=== PATIENT | male | born 1980 | race Caucasian/White ===

== ENCOUNTER → 2017-09-17 | Outpatient (CLI) | payer BC ==
--- NOTE | 2017-09-17 16:28 | Diagnostic Imaging Report ---
INDICATION: Cough. PA and lateral views of the chest are obtained. FINDINGS: Heart size and pulmonary vascularity are within normal limits. There is mild density in the right middle lobe resulting in partial obscuration of the right heart border. No consolidation, pneumothorax or pleural fluid is identified. IMPRESSION: Right middle lobe atelectasis and/or pneumonitis without other acute abnormality detected. Dictated by: Dictated on workstation # [id number]
== END ==
LOC: RAD 16:00
PROVIDERS: ATTEND Nurse Practitioner Family
DX: R05 Cough (principal)
CPT/HCPCS: 71046

== ENCOUNTER 2017-11-06 13:29 | Outpatient (RCR) | payer BC, MEDICAID ==
[2017-10-07 14:23] LABS: BASOPHILS % (AUTO) 0 % (0-10); EOSINOPHILS # (AUTO) 0.1 10^3/uL (0.0-0.3); EOSINOPHILS % (AUTO) 1 % (0-10); HEMATOCRIT 40 % (40-54); HEMOGLOBIN 13.8 G/DL (13.3-17.7); LYMPHOCYTES # (AUTO) 2.4 X 10^3 (1.0-4.0); LYMPHOCYTES % (AUTO) 40 % (12-44); MEAN CORPUSCULAR HEMOGLOBIN 31 PG (25-34); MEAN CORPUSCULAR HGB CONC 34 G/DL (32-36); MEAN CORPUSCULAR VOLUME 89 FL (80-99); MEAN PLATELET VOLUME 10.1 FL (7.4-10.4); MONOCYTES # (AUTO) 0.5 X 10^3 (0.0-1.0); MONOCYTES % (AUTO) 9 % (0-12); NEUTROPHILS # (AUTO) 3.1 X 10^3 (1.8-7.8); NEUTROPHILS % (AUTO) 50 % (42-75); PLATELET COUNT 287 10^3/uL (130-400); RED BLOOD COUNT 4.51 10^6/uL (4.35-5.85); RED CELL DISTRIBUTION WIDTH 13.7 % (10.0-14.5); WHITE BLOOD COUNT 6.2 10^3/uL (4.3-11.0)
[2017-10-07 14:44] LABS: ALANINE AMINOTRANSFERASE 31 U/L (0-55); ALBUMIN 4.2 GM/DL (3.2-4.5); ALKALINE PHOSPHATASE 59 U/L (40-136); BILIRUBIN,TOTAL 0.2 MG/DL (0.1-1.0); BUN/CREATININE RATIO 19; CARBON DIOXIDE 31 MMOL/L (21-32); CHLORIDE 104 MMOL/L (98-107); CREATININE SERUM 0.85 MG/DL (0.60-1.30); GFR ESTIMATED > 60; GLUCOSE 96 MG/DL (70-105); POTASSIUM 4.2 MMOL/L (3.6-5.0); SODIUM 140 MMOL/L (135-145); TOTAL PROTEIN 6.5 GM/DL (6.4-8.2)
[2017-10-14 09:54] LABS: BASOPHILS % (AUTO) 0 % (0-10); EOSINOPHILS # (AUTO) 0.2 10^3/uL (0.0-0.3); EOSINOPHILS % (AUTO) 3 % (0-10); HEMATOCRIT 43 % (40-54); HEMOGLOBIN 14.3 G/DL (13.3-17.7); LYMPHOCYTES # (AUTO) 1.9 X 10^3 (1.0-4.0); LYMPHOCYTES % (AUTO) 27 % (12-44); MEAN CORPUSCULAR HEMOGLOBIN 30 PG (25-34); MEAN CORPUSCULAR HGB CONC 34 G/DL (32-36); MEAN CORPUSCULAR VOLUME 89 FL (80-99); MEAN PLATELET VOLUME 10.4 FL (7.4-10.4); MONOCYTES # (AUTO) 0.6 X 10^3 (0.0-1.0); MONOCYTES % (AUTO) 9 % (0-12); NEUTROPHILS # (AUTO) 4.1 X 10^3 (1.8-7.8); NEUTROPHILS % (AUTO) 61 % (42-75); PLATELET COUNT 197 10^3/uL (130-400); RED BLOOD COUNT 4.78 10^6/uL (4.35-5.85); RED CELL DISTRIBUTION WIDTH 13.9 % (10.0-14.5); WHITE BLOOD COUNT 6.8 10^3/uL (4.3-11.0)
[2017-10-14 10:17] LABS: ALANINE AMINOTRANSFERASE 32 U/L (0-55); ALBUMIN 4.1 GM/DL (3.2-4.5); ALKALINE PHOSPHATASE 51 U/L (40-136); BILIRUBIN,TOTAL 0.3 MG/DL (0.1-1.0); BUN/CREATININE RATIO 15; CARBON DIOXIDE 27 MMOL/L (21-32); CHLORIDE 107 MMOL/L (98-107); CREATININE SERUM 0.84 MG/DL (0.60-1.30); GFR ESTIMATED > 60; GLUCOSE 93 MG/DL (70-105); POTASSIUM 3.9 MMOL/L (3.6-5.0); SODIUM 141 MMOL/L (135-145); TOTAL PROTEIN 6.2 GM/DL (6.4-8.2)
[2017-10-21 10:15] LABS: BASOPHILS % (AUTO) 0 % (0-10); EOSINOPHILS # (AUTO) 0.2 10^3/uL (0.0-0.3); EOSINOPHILS % (AUTO) 2 % (0-10); HEMATOCRIT 40 % (40-54); HEMOGLOBIN 13.8 G/DL (13.3-17.7); LYMPHOCYTES # (AUTO) 1.1 X 10^3 (1.0-4.0); LYMPHOCYTES % (AUTO) 15 % (12-44); MEAN CORPUSCULAR HEMOGLOBIN 31 PG (25-34); MEAN CORPUSCULAR HGB CONC 34 G/DL (32-36); MEAN CORPUSCULAR VOLUME 89 FL (80-99); MEAN PLATELET VOLUME 10.4 FL (7.4-10.4); MONOCYTES # (AUTO) 0.7 X 10^3 (0.0-1.0); MONOCYTES % (AUTO) 10 % (0-12); NEUTROPHILS # (AUTO) 5.4 X 10^3 (1.8-7.8); NEUTROPHILS % (AUTO) 73 % (42-75); PLATELET COUNT 192 10^3/uL (130-400); RED BLOOD COUNT 4.53 10^6/uL (4.35-5.85); RED CELL DISTRIBUTION WIDTH 13.6 % (10.0-14.5); WHITE BLOOD COUNT 7.4 10^3/uL (4.3-11.0)
[2017-10-21 10:38] LABS: ALANINE AMINOTRANSFERASE 24 U/L (0-55); ALBUMIN 4.1 GM/DL (3.2-4.5); ALKALINE PHOSPHATASE 54 U/L (40-136); BILIRUBIN,TOTAL 0.2 MG/DL (0.1-1.0); BUN/CREATININE RATIO 15; CALCIUM 9.1 MG/DL (8.5-10.1); CARBON DIOXIDE 29 MMOL/L (21-32); CHLORIDE 106 MMOL/L (98-107); CREATININE SERUM 0.79 MG/DL (0.60-1.30); GFR ESTIMATED > 60; GLUCOSE 92 MG/DL (70-105); POTASSIUM 3.6 MMOL/L (3.6-5.0); SODIUM 142 MMOL/L (135-145); TOTAL PROTEIN 6.2 GM/DL (6.4-8.2)
[2017-10-28 09:41] LABS: BASOPHILS % (AUTO) 0 % (0-10); EOSINOPHILS # (AUTO) 0.2 10^3/uL (0.0-0.3); EOSINOPHILS % (AUTO) 3 % (0-10); HEMATOCRIT 40 % (40-54); HEMOGLOBIN 13.7 G/DL (13.3-17.7); LYMPHOCYTES # (AUTO) 1.2 X 10^3 (1.0-4.0); LYMPHOCYTES % (AUTO) 21 % (12-44); MEAN CORPUSCULAR HEMOGLOBIN 30 PG (25-34); MEAN CORPUSCULAR HGB CONC 34 G/DL (32-36); MEAN CORPUSCULAR VOLUME 87 FL (80-99); MEAN PLATELET VOLUME 9.9 FL (7.4-10.4); MONOCYTES # (AUTO) 0.7 X 10^3 (0.0-1.0); MONOCYTES % (AUTO) 12 % (0-12); NEUTROPHILS # (AUTO) 3.9 X 10^3 (1.8-7.8); NEUTROPHILS % (AUTO) 64 % (42-75); PLATELET COUNT 155 10^3/uL (130-400); RED BLOOD COUNT 4.63 10^6/uL (4.35-5.85); RED CELL DISTRIBUTION WIDTH 13.7 % (10.0-14.5)
[2017-10-28 10:13] LABS: ALANINE AMINOTRANSFERASE 27 U/L (0-55); ALBUMIN 4.1 GM/DL (3.2-4.5); ALKALINE PHOSPHATASE 46 U/L (40-136); BILIRUBIN,TOTAL 0.3 MG/DL (0.1-1.0); BUN/CREATININE RATIO 14; CALCIUM 9.2 MG/DL (8.5-10.1); CARBON DIOXIDE 27 MMOL/L (21-32); CHLORIDE 106 MMOL/L (98-107); CREATININE SERUM 0.84 MG/DL (0.60-1.30); GFR ESTIMATED > 60; GLUCOSE 92 MG/DL (70-105); SODIUM 140 MMOL/L (135-145); TOTAL PROTEIN 6.4 GM/DL (6.4-8.2)
[2017-11-06 14:00] LABS: BASOPHILS % (AUTO) 0 % (0-10); EOSINOPHILS # (AUTO) 0.2 10^3/uL (0.0-0.3); EOSINOPHILS % (AUTO) 3 % (0-10); HEMATOCRIT 41 % (40-54); HEMOGLOBIN 14.5 G/DL (13.3-17.7); LYMPHOCYTES % (AUTO) 18 % (12-44); MEAN CORPUSCULAR HEMOGLOBIN 30 PG (25-34); MEAN CORPUSCULAR HGB CONC 36 G/DL (32-36); MEAN CORPUSCULAR VOLUME 84 FL (80-99); MEAN PLATELET VOLUME 10.4 FL (7.4-10.4); MONOCYTES # (AUTO) 0.6 X 10^3 (0.0-1.0); MONOCYTES % (AUTO) 11 % (0-12); NEUTROPHILS # (AUTO) 3.9 X 10^3 (1.8-7.8); NEUTROPHILS % (AUTO) 67 % (42-75); RED BLOOD COUNT 4.81 10^6/uL (4.35-5.85); RED CELL DISTRIBUTION WIDTH 13.4 % (10.0-14.5); WHITE BLOOD COUNT 5.7 10^3/uL (4.3-11.0)
[2017-11-06 14:06] LABS: PLATELET COUNT 63 10^3/uL (130-400)
[2017-11-06 14:17] LABS: ALANINE AMINOTRANSFERASE 11 U/L (0-55); ALBUMIN 4.1 GM/DL (3.2-4.5); ALKALINE PHOSPHATASE 46 U/L (40-136); BILIRUBIN,TOTAL 0.4 MG/DL (0.1-1.0); BUN/CREATININE RATIO 16; CARBON DIOXIDE 28 MMOL/L (21-32); CHLORIDE 108 MMOL/L (98-107); CREATININE SERUM 1.01 MG/DL (0.60-1.30); GFR ESTIMATED > 60; GLUCOSE 98 MG/DL (70-105); POTASSIUM 3.9 MMOL/L (3.6-5.0); SODIUM 143 MMOL/L (135-145); TOTAL PROTEIN 6.4 GM/DL (6.4-8.2)
== END 2018-01-05 | disposition home or self-care (01) ==
LOC: LAB 13:29
PROVIDERS: ATTEND Internal Medicine Medical Oncology
DX: C71.9 Malignant neoplasm of brain, unspecified (principal)
CPT/HCPCS: 36415; 80053; 85025

== ENCOUNTER 2017-11-19 08:48 | Outpatient (RCR) | payer BC, MEDICAID ==
[2017-11-22] MEDS ORDERED: morphine INJ 10 MG/ML 1ML (SYR OR VIAL) ONE (13:38)
== END 2017-12-16 | disposition home or self-care (01) ==
LOC: ONC 08:48
PROVIDERS: ATTEND Radiology Radiation Oncology
DX: Z51.0 Encounter for antineoplastic radiation therapy (principal); C71.1 Malignant neoplasm of frontal lobe
CPT/HCPCS: 77300; 77301; 77332; 77334; 77336; 77338; 77386; 99204

== ENCOUNTER 2018-03-04 08:55 | Outpatient (RCR) | payer BC, MEDICAID | END 2018-03-31 | disposition home or self-care (01) | LOC: ONC 08:55 | PROVIDERS: ATTEND Radiology Radiation Oncology | DX: Z51.0 Encounter for antineoplastic radiation therapy (principal); C71.1 Malignant neoplasm of frontal lobe | CPT/HCPCS: 77290; 77295; 77300; 77334; 77336; 77417; 99213 ==

== ENCOUNTER → 2018-03-31 | Outpatient (CLI) | payer BC ==
[~2018-03-31] MED LIST: GADOBUTROL 7.5 MMOL/7.5 ML (GADAVIST) VIAL IV ONE
--- NOTE | 2018-03-31 17:42 | Diagnostic Imaging Report ---
PROCEDURE: MR imaging of the brain with and without contrast. TECHNIQUE: Multiplanar, multisequence MR imaging of the brain was performed with and without contrast. INDICATION: History of prior brain tumor resection. COMPARISON: Comparison is made with a previous study from March 07, 2016 and a previous outside examination from November 27, 2017. FINDINGS: Operative changes of a previous right frontal craniotomy are noted with a large CSF signal intensity resection cavity within the right frontal lobe. This appears unchanged. The T2 signal abnormality surrounding the resection cavity appears stable. This is predominantly around its lateral and inferior margins. Previously described small nodule of enhancement along the medial aspect of the resection cavity demonstrates no appreciable interval change. There also is some precontrast T1 hyperintensity along the medial aspect of the resection cavity, which is unchanged as well. The two regions of described ependymal enhancement along the occipital horn of the left lateral ventricle appear to be slightly more prominent than on the prior examination. The more anteriorly appears slightly more thick measuring approximately 3 mm and previously approximately 1 mm. The more posterior lesion has a maximum length of approximately 13 mm and was previously approximately 11 mm. No entirely new regions of abnormal enhancement are present. The diffusion series demonstrates no restriction or evidence of acute ischemia. There is no acute intracranial hemorrhage. There is no intracranial mass effect. There is no hydrocephalus. The basilar cisterns are patent. The posterior fossa demonstrates no acute process. There is fluid within the left mastoids. There is a trace degree of fluid in the right mastoids. The pituitary gland and the pineal region appear unremarkable. The paranasal sinuses are clear. The orbital contents are unremarkable. Major expected arterial and dural venous sinus flow voids appear preserved. IMPRESSION: 1. Operative changes of right frontal craniotomy with previous right frontal lobe mass resection. T2 signal changes about the resection cavity appear stable in all three dimensions. Slight enhancement of a small nodule along the medial margin of this resection cavity has not appreciably changed. There is also some adjacent precontrast T1 hyperintensity which is on a presumed postsurgical basis. 2. Very slight interval increase in the ependymal enhancement along the left occipital horn. The adjacent T2 signal abnormality within the white matter is unchanged. No new regions of enhancement are evident. 3. There is no acute ischemia, hemorrhage, mass effect, or hydrocephalus. Dictated by: Dictated on workstation # [id number]
== END ==
LOC: RAD 14:25
PROVIDERS: ATTEND Internal Medicine Medical Oncology
DX: C71.9 Malignant neoplasm of brain, unspecified (principal); Z98.890 Other specified postprocedural states
CPT/HCPCS: 70553

== ENCOUNTER → 2018-08-27 | Outpatient (CLI) | payer BC ==
--- NOTE | 2018-08-27 11:12 | Diagnostic Imaging Report ---
PROCEDURE: MR imaging cervical spine with and without contrast. TECHNIQUE: Multiplanar and multisequence MRI of the cervical spine was performed with and without contrast. INDICATION: Neck and back pain as well as leg numbness. COMPARISON: No prior MRI cervical spine studies are available for comparison. FINDINGS: The curvature and alignment of the cervical spine is normal. The vertebral body marrow signal is normal. No geographic marrow lesion is seen. There is fairly normal height and signal intensity to the cervical intervertebral discs. The cervical cord shows normal homogeneous signal intensity and normal morphology. No focal disc protrusion is seen. No definite central canal or neural foraminal narrowing is seen. No abnormal enhancement is identified following contrast administration. IMPRESSION: Unremarkable pre-and postcontrast MRI of the cervical spine. Dictated by: Dictated on workstation # [id number]
== END ==
LOC: RAD 09:09
PROVIDERS: ATTEND Internal Medicine Medical Oncology
DX: C71.9 Malignant neoplasm of brain, unspecified (principal); M54.2 Cervicalgia
CPT/HCPCS: 72156

== ENCOUNTER → 2018-09-08 | Outpatient (CLI) | payer BC ==
--- NOTE | 2018-09-08 12:13 | Diagnostic Imaging Report ---
EXAM: MRI THORACIC SPINE W/WO CON INDICATION: Back pain. History of glioblastoma. COMPARISON: None. FINDINGS: Normal alignment. Vertebral body heights are preserved. Mild scattered degenerative endplate changes. No spinal canal or neural foraminal narrowing. No abnormal signal or enhancement in the thoracic spinal cord. The visualized paravertebral soft tissues are unremarkable. IMPRESSION: Mild spondylotic changes in the thoracic spine. Remainder negative. No evidence of metastatic disease. Dictated by: Dictated on workstation # [id number]
== END ==
LOC: RAD 08:34
PROVIDERS: ATTEND Internal Medicine Medical Oncology
DX: C71.9 Malignant neoplasm of brain, unspecified (principal); M47.814 Spondylosis without myelopathy or radiculopathy, thoracic region
CPT/HCPCS: 72157

== ENCOUNTER → 2018-11-19 | Outpatient (CLI) | payer BC ==
[~2018-11-19] MED LIST changes: +CELE-63; -GADOBUTROL 7.5 MMOL/7.5 ML (GADAVIST) VIAL IV ONE; +TEMO20CA14
[2018-11-19 14:09] LABS: HEMATOCRIT 45 % (40-54); HEMOGLOBIN 15.6 G/DL (13.3-17.7); MEAN CORPUSCULAR HEMOGLOBIN 30 PG (25-34); MEAN CORPUSCULAR VOLUME 88 FL (80-99); WHITE BLOOD COUNT 8.7 10^3/uL (4.3-11.0)
[2018-11-19 14:10] LABS: BASOPHILS % (AUTO) 0 % (0-10); EOSINOPHILS % (AUTO) 0 % (0-10); LYMPHOCYTES # (AUTO) 1.4 X 10^3 (1.0-4.0); LYMPHOCYTES % (AUTO) 16 % (12-44); MEAN CORPUSCULAR HGB CONC 34 G/DL (32-36); MEAN PLATELET VOLUME 9.7 FL (7.4-10.4); MONOCYTES # (AUTO) 0.8 X 10^3 (0.0-1.0); MONOCYTES % (AUTO) 9 % (0-12); NEUTROPHILS # (AUTO) 6.4 X 10^3 (1.8-7.8); NEUTROPHILS % (AUTO) 74 % (42-75); PLATELET COUNT 223 10^3/uL (130-400); RED CELL DISTRIBUTION WIDTH 12.9 % (10.0-14.5)
== END ==
LOC: LAB FS 13:45
PROVIDERS: ATTEND Internal Medicine Medical Oncology
DX: C71.9 Malignant neoplasm of brain, unspecified (principal)
CPT/HCPCS: 36415; 85025

== ENCOUNTER 2018-11-22 10:30 | Emergency (ER) | payer BC ==
[~2018-11-22] VITALS: Ht 175.3 cm; Wt 72.6 kg
--- NOTE | 2018-11-22 10:53 | ED Headache ---
General Chief Complaint: Head/Cervical Problems Stated Complaint: HEADACHE Source: patient Exam Limitations: no limitations History of Present Illness Date Seen by Provider: November 22, 2018 Time Seen by Provider: 10:52 Initial Comments To ER by mother with reports of a severe frontal headache for the past 2-3 days. A history of stage IV glioblastoma currently on oral chemotherapy ( Celecoxib 200mg po bid and temozolomide 20mg po daily). He had surgical resection of the initial lesion with subsequent recurrence found on recent MRI. Mother also states that over the course of the past week his memory has been "terrible". No seizure-like activity or other neurologic symptoms. Timing/Duration: 1 week, increasing Severity/Quality: moderate Location: frontal Associated Symptoms: denies symptoms; No confusion, No fatigue, No facial pain , No fever/chills, No flushing; nausea/vomiting (nausea but no vomiting); No seizures, No vision changes Allergies and Home Medications Allergies Coded Allergies: No Known Drug Allergies (Unverified , 03/07/18) Patient Home Medication List Home Medication List Reviewed: Yes Review of Systems Review of Systems Constitutional: see HPI Eyes: No Symptoms Reported Ears, Nose, Mouth, Throat: no symptoms reported Respiratory: no symptoms reported Cardiovascular: no symptoms reported Genitourinary: no symptoms reported Musculoskeletal: no symptoms reported Skin: no symptoms reported Psychiatric/Neurological: See HPI, Headache Past Czlxzjo-Bxernh-Juelpt Hx Patient Social History Recent Foreign Travel: No Contact w/Someone Who Travel: No Physical Exam Vital Signs Vital Signs - First Documented 11/22/18 10:45 Temp 97.6 Pulse 71 Resp 16 B/P (MAP) 146/95 (112) Pulse Ox 99 O2 Delivery Room Air Capillary Refill : Height, Weight, BMI Height: '" Weight: lbs. oz. kg; BMI Method: General Appearance: WD/WN, no apparent distress HEENT: PERRL/EOMI, normal ENT inspection Neck: non-tender, full range of motion Respiratory: normal breath sounds, no respiratory distress, no accessory muscle use Extremities: normal range of motion, non-tender Psychiatric: alert, oriented x 3, other (flat affect) Crainal Nerves: normal hearing, normal speech, PERRL Coordination/Gait: normal gait Motor/Sensory: no motor deficit, no sensory deficit Skin: normal color, warm/dry Progress/Results/Core Measures Results/Orders My Orders Orders - GENOVEVA FINK APRN Ct Head Wo (11/22/18 10:50) Fentanyl Injection (Sublimaze Injection (11/22/18 11:00) Prochlorperazine Injection (Compazine In (11/22/18 11:00) Medications Given in ED Current Medications Medications Dose Ordered Sig/Bebe Route Start Time Stop Time Status Last Admin Dose Admin Fentanyl Citrate 75 mcg ONCE ONCE IVP 11/22/18 11:00 11/22/18 11:01 DC 11/22/18 10:59 75 MCG Prochlorperazine Edisylate 5 mg ONCE ONCE IM 11/22/18 11:00 11/22/18 11:01 DC 11/22/18 10:59 5 MG Vital Signs/I&O 11/22/18 10:45 Temp 97.6 Pulse 71 Resp 16 B/P (MAP) 146/95 (112) Pulse Ox 99 O2 Delivery Room Air Diagnostic Imaging Diagonstic Imaging: CT Comments NAME: YOGESH ESPINOZA MED REC#: [id number] PT STATUS: REG ER : 1980 PHYSICIAN: GENOVEVA FINK APRN ADMIT DATE: 11/22/18/ER Draft Date of Exam:11/22/18 CT HEAD WO PROCEDURE: CT head without contrast. TECHNIQUE: Multiple contiguous axial images were obtained through the brain without the use of intravenous contrast. Auto Exposure Controls were utilized during the CT exam to meet ALARA standards for radiation dose reduction. INDICATION: Headache. History of brain cancer, currently on chemotherapy. COMPARISON: MRI brain from 03/31/2018. FINDINGS: Stable postoperative changes from right frontal tumor resection. The cystic cavity is located at the operative bed and similar to prior MRI. There are new areas of ill-defined white matter hypoattenuation in the left inferior frontal lobe as well as the left parieto-occipital region. No progressive hydrocephalus. No hyperdense hemorrhage. No acute skull fracture. Right frontal craniotomy is again seen. Mastoid air cells are clear. IMPRESSION: 1. New area of white matter hypoattenuation in the left frontal lobe may represent vasogenic edema associated with metastasis or post treatment change. Consider non-emergent MRI brain without and with IV contrast for further assessment. 2. Hypoattenuation of the left parieto-occipital region is also enlarged compared to prior MRI and could also represent vasogenic edema or post treatment change. 3. No hydrocephalus or midline shift. Dictated on workstation # [id number] Dict: 11/22/18 1127 Trans: 11/22/18 1143 [facility] [address] Interpreted by: JULIA LOMAX MD Electronically signed by: Departure Communication (Admissions) Spoke with [facility], Dr. Hayes has accepted the patient in transfer. Ill let him go by private vehicle per his wishes after discussing with him the risks of seizure or worsening neurologic status en route Impression Primary Impression: Headache Additional Impression: Glioblastoma Disposition: 02 XFER SHT-TRM HOSP Condition: Stable Departure-Patient Inst. Referrals: [facility] (PCP/Family) Primary Care Physician GENOVEVA FINK APRN November 22, 2018 10:53
[2018-11-22] MEDS ORDERED: PROCHLORPERAZINE 10 MG/2ML INJ (COMPAZINE) IM ONE (11:00)
[2018-11-22] MEDS ORDERED: fentaNYL INJECTION 100 MCG/2 ML AMP IVP ONE (11:00)
[2018-11-22] MEDS ORDERED: TEMO20CA14 (11:13)
[2018-11-22] MEDS ORDERED: CELE-63 (11:13)
--- NOTE | 2018-11-22 11:43 | Diagnostic Imaging Report ---
PROCEDURE: CT head without contrast. TECHNIQUE: Multiple contiguous axial images were obtained through the brain without the use of intravenous contrast. Auto Exposure Controls were utilized during the CT exam to meet ALARA standards for radiation dose reduction. INDICATION: Headache. History of brain cancer, currently on chemotherapy. COMPARISON: MRI brain from 03/31/2018. FINDINGS: Stable postoperative changes from right frontal tumor resection. The cystic cavity is located at the operative bed and similar to prior MRI. There are new areas of ill-defined white matter hypoattenuation in the left inferior frontal lobe as well as the left parieto-occipital region. No progressive hydrocephalus. No hyperdense hemorrhage. No acute skull fracture. Right frontal craniotomy is again seen. Mastoid air cells are clear. IMPRESSION: 1. New area of white matter hypoattenuation in the left frontal lobe may represent vasogenic edema associated with metastasis or post treatment change. Consider non-emergent MRI brain without and with IV contrast for further assessment. 2. Hypoattenuation of the left parieto-occipital region is also enlarged compared to prior MRI and could also represent vasogenic edema or post treatment change. 3. No hydrocephalus or midline shift. Dictated by: Dictated on workstation # [id number]
--- NOTE | 2018-11-22 11:57 | NUR ---
GENOVEVA IN WITH PT
[2018-11-22 12:23] VITALS: BP 146/98
== END 2018-11-22 12:23 | disposition short-term general hospital (02) ==
LOC: EDUNIT# 10:30 → ER 10:31
DX: R51 Headache (principal); C71.9 Malignant neoplasm of brain, unspecified
CPT/HCPCS: 70450; 96372; 96374

== ENCOUNTER 2018-12-01 18:02 | Emergency (ER) | payer BC ==
[~2018-12-01] VITALS: Ht 175.3 cm; Wt 63.5 kg
--- OUTSIDE RECORDS SUMMARY | 2018-12-01 18:09 | XMS REPORT ---
Author Author DAO YANEZ [facility] Address [address] [place] [address] Care Team Providers Care Director Drug Name Role Phone DAO YANEZ Unavailable PROBLEMS Type Condition ICD9-CM Code [id number] Code Onset Dates Condition Status SNOMED Code Problem Brain cancer C71.9 Active 206690099 ALLERGIES No Information ENCOUNTERS Encounter Location Date Diagnosis [address] [address] November, Brain cancer C71.[address] [address] Oct, [address] [address] Oct, Brain cancer C71.9 [facility] [address] [address] Oct, Brain cancer C71.[address] [address] Oct, Brain cancer C71.9 [facility] [address] [place] [address] Sep, Flu-like symptoms R68.89 ; Sore throat J02.9 ; Upper respiratory infection J06.9 and Tiredness R53.83 [facility] [address] [place] [address] Sep, [address] [address] Sep, Brain cancer C71.[address] [address] Aug, [facility] [address], [place] [address] Aug, [address] [address] Aug, [facility] C71.9 [facility] [address] [place] [address] Aug, Brain cancer C71.9 [facility] [address] [place] [address] Aug, [facility] [address] [place] [address] Aug, [facility] [address] [place] [address] Aug, Brain cancer C71.9 [facility] [address] [place] [address] Aug, Brain cancer C71.9 [facility] [address] [place] [address] Jul, [facility] [address] [place] [address] Jul, Brain [facility] C71.9 [facility] [place] [address] [place] [address] Jul, IMMUNIZATIONS No Known Immunizations SOCIAL HISTORY Never Assessed REASON FOR VISIT PLAN OF CARE VITAL SIGNS MEDICATIONS Unknown Medications RESULTS No Results PROCEDURES No Known procedures INSTRUCTIONS MEDICATIONS ADMINISTERED No Known Medications MEDICAL (GENERAL) HISTORY Type Description Date Medical History Stage 4 brain cancer Glioblastoma Medical History Anxiety Medical History hypertension Surgical History appendectomy 2006 or 2007 Surgical History right frontal craniotomy and mass resection/debulking at [facility] 08/22/2017 Hospitalization History Surgery at for crainotomy 08/22/2017
--- OUTSIDE RECORDS SUMMARY | 2018-12-01 18:09 | XMS REPORT ---
Author Author DAO YANEZ [facility] Address [address] [place] [address] Care Team Providers Care Excellence Specialist Name Role Phone DAO YANEZ Unavailable PROBLEMS Type Condition ICD9-CM Code [id number]-RE Code Onset Dates Condition Status SNOMED Code Problem Brain cancer C71.9 Active [id number] ALLERGIES No Information ENCOUNTERS Encounter Location Date Diagnosis [address] [address] November, Brain cancer C71.[address] [address] Oct, [address] [address] Oct, Brain cancer C71.9 [facility] [address], [place] [address] Oct, Brain cancer C71.[address] [address] Oct, Brain cancer C71.9 [facility] [address] [place] [address] Sep, Flu-like symptoms R68.89 ; Sore throat J02.9 ; Upper respiratory infection J06.9 and Tiredness R53.83 [facility] [address] [place] [address] Sep, [address] [address] Sep, Brain cancer C71.[address] [address] Aug, [facility] [address] [place] [address] Aug, [address] [address] Aug, [facility] C71.9 [facility] [address] [place] [address] Aug, [facility] C71.9 [facility] [address] [place] [address] Aug, [facility] [address] [place] [address] Aug, [facility] [address] [place] [address] Aug, [facility] C71.9 [facility] [address] [place] [address] Aug, [facility] C71.9 [facility] [address] [place] [address] Jul, [facility] [address] [place] [address] Jul, [facility] C71.9 [facility] [address] [place] [address] Jul, IMMUNIZATIONS No Known Immunizations SOCIAL HISTORY Never Assessed REASON FOR VISIT Medication question PLAN OF CARE VITAL SIGNS MEDICATIONS Medication Instructions Dosage Frequency Start Date End Date Duration Status Oxycodone HCl 15 MG Orally every 4 hours 1 tablet 4h Sep, 28 days Active Xanax 1 MG Orally 3 times a day 1 tablet 8h Jul, 28 days Active RESULTS No Results PROCEDURES No Known procedures INSTRUCTIONS MEDICATIONS ADMINISTERED No Known Medications MEDICAL (GENERAL) HISTORY Type Description Date Medical History Stage 4 brain cancer Glioblastoma Medical History Anxiety Medical History hypertension Surgical History appendectomy 2006 or 2007 Surgical History right frontal craniotomy and mass resection/debulking at [facility] 08/22/2017 Hospitalization History Surgery at for crainotomy 08/22/2017
[2018-12-01] MEDS ORDERED: DEXA4TAB (18:21)
[2018-12-01] MEDS ORDERED: OXYC15TA79 (18:21)
[2018-12-01] MEDS ORDERED: Oxycontin (18:23)
[2018-12-01] MEDS ORDERED: NS IV 1000 ML 1,000 ML IV STA (18:30)
[2018-12-01] MEDS ORDERED: fentaNYL INJECTION 100 MCG/2 ML AMP IVP ONE (18:30)
[2018-12-01 18:31] LABS: HEMOGLOBIN 15.7 G/DL (13.3-17.7); WHITE BLOOD COUNT 20.1 10^3/uL (4.3-11.0)
[2018-12-01 18:32] LABS: MEAN PLATELET VOLUME 9.6 FL (7.4-10.4); RED CELL DISTRIBUTION WIDTH 13.5 % (10.0-14.5)
--- NOTE | 2018-12-01 18:38 | ED General ---
General Chief Complaint: Head/Cervical Problems Stated Complaint: CONFUSED,C/O PAIN ALL OVER Nursing Sepsis Screen: No Definite Risk Source of Information: Patient, Family Exam Limitations: Other (cognitive impairment) History of Present Illness Date Seen by Provider: December 01, 2018 Time Seen by Provider: 18:20 This is a 38-year-old male on oral chemotherapy for glioblastoma who presents with his to the emergency department for increased confusion over the last 2 weeks. She says that he sleeps very poorly, wanders around at night, he frequently is disoriented and while he is sitting in his living room we'll ask where he is. He is very forgetful, he cannot remember what medicines he takes for example, he cannot remember if he takes Keppra for seizure prophylaxis or not. His believes he is taking a steroid currently. He states that he has been dealing with pain in the left buttock and hip for some period of time but denies acute injury. He also feels like he hasn't been able to get a deep breath, it is unclear for how long that has been going on. He may felt warm subjectively according to his although they never found him to be febrile. No change in ongoing headaches, no focal visual change or weakness, numbness, or tingling. Allergies and Home Medications Allergies Coded Allergies: No Known Drug Allergies (Unverified , 03/07/18) Patient Home Medication List Home Medication List Reviewed: Yes Review of Systems Review of Systems Constitutional: no symptoms reported EENTM: no symptoms reported Respiratory: see HPI Cardiovascular: no symptoms reported Gastrointestinal: no symptoms reported Genitourinary: no symptoms reported Musculoskeletal: see HPI Skin: no symptoms reported Psychiatric/Neurological: See HPI Hematologic/Lymphatic: No Symptoms Reported Immunological/Allergic: no symptoms reported Past [place]-Efdjjp-Anuxnb Hx Past Med/Social Hx: Reviewed Nursing Past Med/Soc Hx Patient Social History Alcohol Use: Denies Use Recreational Drug Use: No Recent Foreign Travel: No Contact w/Someone Who Travel: No Recent Infectious Disease Expo: No Recent Hopitalizations: No Physical Abuse: No Sexual Abuse: No Mistreated: No Fear: No Past Medical History Surgeries: No Respiratory: No Cardiac: No Neurological: No Genitourinary: No Gastrointestinal: No Musculoskeletal: No Endocrine: No HEENT: No Cancer: Yes Brain Did You Recieve Any Treatments: Yes What Type of Treatment Did You: Chemotherapy, Radiation Psychosocial: No Integumentary: No Physical Exam Vital Signs Vital Signs - First Documented 12/01/18 18:22 Temp 98.9 Pulse 87 Resp 18 B/P (MAP) 146/86 (106) Pulse Ox 96 O2 Delivery Room Air Capillary Refill : Less Than 3 Seconds Height, Weight, BMI Height: 5'9.00" Weight: 140lbs. oz. 63.047701ca; BMI Method:Stated General Appearance: No Apparent Distress Eyes: Bilateral Eye PERRL, Bilateral Eye EOMI HEENT: Moist Mucous Membranes Neck: Supple Respiratory: Lungs Clear, No Accessory Muscle Use, No Respiratory Distress; No Rales, No Rhonci, No Stridor, No Wheezing Cardiovascular: Regular Rate, Rhythm, No Edema, Normal Peripheral Pulses Gastrointestinal: Non Tender, Soft Back: No Vertebral Tenderness Extremity: Other (there is tenderness in the musculature of the superior left buttock, normal inspection of the skin) Neurologic/Psychiatric: Other (patient is awake and alert, he knows the month but he said that he was 37 years old. Cranial nerves II through XII are intact symmetrically, motor and sensory function is grossly intact symmetrically bilaterally with no drift in either extremity. There is no extinction. All 4 visual quadrants are intact. Normal finger to nose testing.) Skin: Warm/Dry Procedures/Interventions NIH Stroke Scale NIH : Select: Initial Level of Consciousness: 0=Alert Level of Consciousness-Questio: 1=Answers one question LOC Commands: 0=Performs both tasks Gaze: 0=Normal Visual Mckoy: 0=No visual loss Facial Movement (Facial Paresi: 0=Normal symmetrical mnt Motor Function-Arms Right: 0=No drift Motor Function-Arms Left: 0=No drift Motor Function-Legs Right: 0=No drift Motor Function-Legs Left: 0=No drift Limb Ataxia: 0=Absent Sensory: 0=Normal:no loss Best Language: 1=Mild to moderat aphasia Dysarthria: 0=Normal Extinction & Inattention: 0=No abnormality Progress/Results/Core Measures Suspected Sepsis Recent Fever Within 48 Hours: No Infection Criteria Present: None New/Unexplained Altered Menta: Yes Sepsis Screen: No Definite Risk SIRS Temperature:98.9 Pulse: 87 Respiratory Rate: 18 Laboratory Tests 12/01/18 18:16: White Blood Count 20.1H Blood Pressure 146 /86 Mean: 106 Laboratory Tests 12/01/18 18:16: Creatinine 0.67, Platelet Count 197, Total Bilirubin 0.2 Results/Orders Lab Results Laboratory Tests Test 12/01/18 18:16 12/01/18 18:32 Range/Units White Blood Count 20.1 H 4.3-11.0 10^3/uL Red Blood Count 5.08 4.35-5.85 10^6/uL Hemoglobin 15.7 13.3-17.7 G/DL Hematocrit 46 40-54 % Mean Corpuscular Volume 91 80-99 FL Mean Corpuscular Hemoglobin 31 25-34 PG Mean Corpuscular Hemoglobin Concent 34 32-36 G/DL Red Cell Distribution Width 13.5 10.0-14.5 % Platelet Count 197 130-400 10^3/uL Mean Platelet Volume 9.6 7.4-10.4 FL D-Dimer 0.24 0.00-0.49 UG/ML Sodium Level 143 135-145 MMOL/L Potassium Level 4.5 3.6-5.0 MMOL/L Chloride Level 102 98-107 MMOL/L Carbon Dioxide Level 21 21-32 MMOL/L Anion Gap 20 H 5-14 MMOL/L Blood Urea Nitrogen 28 H 7-18 MG/DL Creatinine 0.67 0.60-1.30 MG/DL Estimat Glomerular Filtration Rate > 60 BUN/Creatinine Ratio 42 Glucose Level 149 H 70-105 MG/DL Calcium Level 8.7 8.5-10.1 MG/DL Corrected Calcium 8.9 8.5-10.1 MG/DL Total Bilirubin 0.2 0.1-1.0 MG/DL Aspartate Amino Transf (AST/SGOT) 19 5-34 U/L Alanine Aminotransferase (ALT/SGPT) 36 0-55 U/L Alkaline Phosphatase 81 40-136 U/L Troponin T < 6 <=15 NG/L Total Protein 6.3 L 6.4-8.2 GM/DL Albumin 3.8 3.2-4.5 GM/DL Urine Color YELLOW Urine Clarity CLEAR Urine pH 5.5 5-9 Urine Specific [place] 1.025 H 1.016-1.022 Urine Protein NEGATIVE NEGATIVE Urine Glucose (UA) NEGATIVE NEGATIVE Urine Ketones TRACE H NEGATIVE Urine Nitrite NEGATIVE NEGATIVE Urine Bilirubin NEGATIVE NEGATIVE Urine Urobilinogen 0.2 NORMAL MG/DL Urine Leukocyte Esterase NEGATIVE NEGATIVE Urine RBC (Auto) 2+ H NEGATIVE Urine RBC NONE /HPF Urine WBC 0-2 /HPF Urine Squamous Epithelial Cells 0-2 /HPF Urine Crystals NONE /LPF Urine Bacteria NEGATIVE /HPF Urine Casts NONE /LPF Urine Mucus NONE /LPF Urine Culture Indicated NO My Orders Orders - DIONNE BRENNAN DO Ekg Tracing (12/01/18 18:13) Ct Head Wo (12/01/18 18:13) Cbc No Diff (12/01/18 18:13) Comprehensive Metabolic Panel (12/01/18 18:13) Pelvis With Left Hip 2-3 View (12/01/18 18:30) Fibrin Degradation Products (12/01/18 18:30) Troponin T (12/01/18 18:30) Chest 1 View Ap/Pa Only (12/01/18 18:30) Ns Iv 1000 Ml (Sodium Chloride 0.9%) (12/01/18 18:30) Fentanyl Injection (Sublimaze Injection (12/01/18 18:30) Ua Culture If Indicated (12/01/18 18:31) Fentanyl Injection (Sublimaze Injection (12/01/18 19:35) Lorazepam Injection (Ativan Injection) (12/01/18 20:15) Medications Given in ED Current Medications Medications Dose Ordered Sig/Bebe Route Start Time Stop Time Status Last Admin Dose Admin Fentanyl Citrate 50 mcg ONCE ONCE IVP 12/01/18 18:30 12/01/18 18:31 DC 12/01/18 18:47 50 MCG Lorazepam 2 mg ONCE ONCE IVP 12/01/18 20:15 12/01/18 20:16 DC 12/01/18 20:23 2 MG Vital Signs/I&O 12/01/18 18:22 Temp 98.9 Pulse 87 Resp 18 B/P (MAP) 146/86 (106) Pulse Ox 96 O2 Delivery Room Air Capillary Refill : Less Than 3 Seconds Blood Pressure Mean: 106 Progress Note #1: Progress Note History is somewhat limited as is admitted by the patient and his significant other. He has some pain in the buttock on the left hip, it made it difficult for him on 5 second leg called testing although he was able to do this without drift. There is no obvious abnormality on exam other than tenderness, no abscess or cellulitis for example. We can get an x-ray of the hip and pelvis. There is some history of shortness of breath as well, he is in no acute distress objectively, we will get a chest x-ray, EKG, basic labs, I will also check a troponin and I will check a d-dimer as he does have a neoplastic process but is otherwise low risk. We'll repeat a CAT scan of the brain given the increased confusion and we will transfer to where he has been receiving his care for further evaluation. Progress Note #2: Progress Note At 7:15 I called for transfer, CT shows small left posterior hemorrhage per radiology. This obviously precludes anticoagulation, so even with D-dimer pending we can begin transfer now without delay. Progress Note #3: Progress Note We received callback with accepting physician at 2102, Dr Bharathi Lainez at . Per transfer center CT had been reviewed by [facility] medical concierge who felt it was not significantly changed from prior and no further recommendations were given at that time. Departure Impression Primary Impression: Acute encephalopathy Additional Impressions: Glioblastoma Leg pain Qualified Codes: M79.605 - Pain in left leg Malaise Disposition: XFER SHT-TRM HOSP Condition: Stable Transfer Time Spoke to Accepting Phy: 21:02 Transfer Facility: , Dr Bharathi Lainez Method of Transfer: EMS Departure-Patient Inst. Referrals: [facility] (PCP/Family) Primary Care Physician DIONNE BRENNAN DO December 01, 2018 18:38
[2018-12-01 18:46] LABS: CLARITY,URINE CLEAR; COLOR,URINE YELLOW; PH,URINE 5.5 (5-9)
[2018-12-01 18:47] LABS: BACTERIA,URINE NEGATIVE /HPF; BILIRUBIN,URINE NEGATIVE (NEGATIVE); GLUCOSE, URINE (UA) NEGATIVE (NEGATIVE); KETONES,URINE TRACE (NEGATIVE); LEUKOCYTE ESTERASE ,URINE NEGATIVE (NEGATIVE); NITRITE,URINE NEGATIVE (NEGATIVE); PROTEIN,URINE NEGATIVE (NEGATIVE); SQUAMOUS EPITHELIAL CELL,UR 0-2 /HPF; UROBILINOGEN,URINE 0.2 MG/DL (NORMAL); WBC,URINE 0-2 /HPF
[2018-12-01 18:53] LABS: BUN/CREATININE RATIO 42; CARBON DIOXIDE 21 MMOL/L (21-32); CHLORIDE 102 MMOL/L (98-107); CREATININE SERUM 0.67 MG/DL (0.60-1.30); GFR ESTIMATED > 60; POTASSIUM 4.5 MMOL/L (3.6-5.0); SODIUM 143 MMOL/L (135-145)
[2018-12-01 18:54] LABS: ALANINE AMINOTRANSFERASE 36 U/L (0-55); ALBUMIN 3.8 GM/DL (3.2-4.5); ALKALINE PHOSPHATASE 81 U/L (40-136); BILIRUBIN,TOTAL 0.2 MG/DL (0.1-1.0); CALCIUM 8.7 MG/DL (8.5-10.1); GLUCOSE 149 MG/DL (70-105); TOTAL PROTEIN 6.3 GM/DL (6.4-8.2)
--- NOTE | 2018-12-01 19:10 | Diagnostic Imaging Report ---
CLINICAL INDICATION: Patient with shortness of breath. Patient has history of brain cancer. Exam: Portable chest x-ray upright view. Comparisons: Chest x-ray dated 09/17/2017. Findings: Lungs/pleura: Lungs are clear. There is no pneumothorax. There is no pleural effusion. Mediastinum: Unremarkable. Pulmonary vasculature: Unremarkable. Heart: Unremarkable. Bones/extrathoracic soft tissue: Unremarkable. Impression: There is no radiographic evidence of acute cardiopulmonary process. Dictated by: Dictated on workstation # [id number]
--- NOTE | 2018-12-01 19:12 | Diagnostic Imaging Report ---
CLINICAL INDICATION: Patient with left hip pain. No known injury. Patient has history of brain cancer. EXAM: X-ray of the pelvis AP view and x-ray of left hip, AP and frog-leg views. COMPARISON: None. FINDINGS: There is no acute fracture or dislocation. There is no bony destructive or erosive process seen. Right hip, pelvis, sacrum and sacroiliac joint show no significant abnormality. There are surgical clips overlying the right lower abdominal region. IMPRESSION: 1: There is no acute fracture or dislocation. There is no significant bone or joint abnormality involving the pelvis and hips. Dictated by: Dictated on workstation # [id number]
--- NOTE | 2018-12-01 19:18 | Diagnostic Imaging Report ---
PROCEDURE: CT head without contrast. TECHNIQUE: Multiple contiguous axial images were obtained through the brain without the use of intravenous contrast. Auto Exposure Controls were utilized during the CT exam to meet ALARA standards for radiation dose reduction. INDICATION: Altered mental status. History of brain cancer. COMPARISON: CT head without contrast, 11/22/2018. FINDINGS: Right frontal craniotomy and resection of a portion of the right frontal lobe. Vasogenic edema in the left parietal lobe is similar to the prior exam. Stable calcification in the parasagittal right frontal lobe. No hydrocephalus or extra-axial fluid collections. Subcentimeter focus of hyperattenuation in the left parietal lobe measuring approximately 0.5 cm has grown since the prior exam. Stable sclerotic changes in the left mastoid. The visualized paranasal sinuses are clear. IMPRESSION: 1. New 5 mm focus of hyperattenuation within the left parietal lobe vasogenic edema suspicious for small hemorrhage. 2. Remainder stable including postoperative changes in the right frontal lobe and vasogenic edema in the left inferior frontal lobe and left parietal lobe. Findings discussed with Dr. Jose Angel at 7:14 p.m. on 12/01/2018. Dictated by: Dictated on workstation # [id number]
[2018-12-01] MEDS ORDERED: fentaNYL INJECTION 100 MCG/2 ML AMP IVP STA (19:35)
[2018-12-01] MEDS ORDERED: LORazepam INJ 2 MG/ML (ATIVAN) VIAL IVP ONE (20:15)
[2018-12-01 21:23] VITALS: BP 142/89
--- NOTE | 2018-12-01 22:04 | NUR ---
EMS arrived. Report given to UZAIR Parra and UZAIR Mg. Care was transferred at this time. BP 146/84 SPO2 94 Pulse 79
== END 2018-12-01 22:06 | disposition short-term general hospital (02) ==
LOC: EDUNIT# 18:02 → ER FS 18:05
DX: G93.40 Encephalopathy, unspecified (principal); C71.9 Malignant neoplasm of brain, unspecified; M79.605 Pain in left leg; R53.81 Other malaise
CPT/HCPCS: 36415; 70450; 71045; 73502; 80053; 81000; 84484; 85027; 85379; 93005